=== PATIENT | female | born 1995 | race Caucasian/White ===

== ENCOUNTER → 2017-09-17 14:25 | Observation (INO) ==
[2017-09-17 13:16] LABS: Bilirubin,Urine Negative (Negative); Clarity,Urine Cloudy (Clear); Color,Urine Yellow (Yellow); Glucose,Urine (UA) Normal (Normal); Ketones,Urine Negative (Negative)
--- NOTE | 2017-09-17 13:16 | OB/GYN Progress Note ---
Date of Encounter: 09/17/17 Time of Encounter: 13:14 - Assessment and Plan (1) 36 weeks gestation of Current Visit: Yes Status: Acute (2) Uterine contractions Current Visit: Yes Status: Acute No change from office exam. Discharged home with labor precautions. (3) Encounter for suspected PROM, with rupture of membranes not found Current Visit: Yes Status: Acute Speculum exam shows white thin discharge, - fern Subjective - Subjective Interval history: 36+6 presents to triage with complaints of contractions off and on since last night resuming while at lunch today, and also thinks she might be leaking a little bit of fluid. Reports good movement, denies vaginal bleeding. Antepartum ROS: loss of fluid, movement normal, contractions, no vaginal bleeding Objective - Vital Signs Vital Signs: Intake and Output 09/16/17 09/17/17 09/17/17 23:59 07:59 15:59 Other: Weight 97.84 kg Patient Weight 09/17/17 23:59 Weight 97.84 kg - Exam FHR: auscultation normal FHR comments: Baseline 120 Abdomen: Present: soft, gravid Cervical dilation: 50/-3
[2017-09-17 13:17] LABS: Amphetamine Screen,Urine Negative ng/mL (Cutoff=1000); Barbiturate Screen,Urine Negative ng/mL (Cutoff=200); Benzodiazepines Screen,Urine Negative ng/mL (Cutoff=200); Blood,Urine Negative (Negative); Cannabinoid Screen,Urine Negative ng/mL (Cutoff = 50); Cocaine Screen,Urine Negative ng/mL (Cutoff= 300); Leukocyte Esterase,Urine Moderate (Negative); Nitrite,Urine Negative (Negative); Opiate Screen,Urine Negative ng/mL (Cutoff=300); PH,Urine 6.5 pH Units (5.0-8.0); Phencyclidine Screen,Urine Negative ng/mL (Cutoff=25); Protein,Urine Negative (Neg-Trace); Specific Gravity,Urine 1.017 (1.010-1.025); Urobilinogen,Urine Normal (Normal)
[2017-09-17 13:24] LABS: Squamous Epithelial Cell,Urine Many per lpf (None-Few)
[2017-09-17 13:25] LABS: Bacteria,Urine Moderate per hpf (None-Few); RBC,Urine 0-3 per hpf (0-3)
== END | disposition home or self-care (01) ==
LOC: 1NENULAB
PROVIDERS: ADMIT Obstetrics & Gynecology; ATTEND Obstetrics & Gynecology